=== PATIENT | male | born 1980 | race Caucasian/White ===

== ENCOUNTER 2024-08-27 21:05 | Emergency (ER) | payer OTHER ==
[2024-08-27 21:18] VITALS: BP 146/98; PULSE 59
== END 2024-08-27 21:54 | disposition home or self-care (01) ==
LOC: JD.ED 21:05
DX: B02.9 Zoster without complications (principal); Z79.899 Other long term (current) drug therapy
CPT/HCPCS: 99282; A9270; 99283